=== PATIENT | male | born 1930 | race Caucasian/White ===

== ENCOUNTER 2018-12-13 19:23 | Inpatient (IN) | payer BC ==
[~2018-12-13] VITALS: Ht 167.6 cm; Wt 83.6 kg
[2018-12-13 19:25] VITALS: BP_SYST 120
--- NOTE | 2018-12-13 19:25 | NUR ---
Placed in room 6 . Placed on cardiac technician, blood pressure machine and pulse oximeter. To gown for exam. Side rails up. Report given to Obie ALANIZ.
--- NOTE | 2018-12-13 19:25 | NUR ---
Jose royal in ED - 12/13/18 at 1933 by [email or web address] Placed in room 6 . Placed on cardiac tech, blood pressure machine and pulse oximeter. To gown for exam. Side rails up.
--- NOTE | 2018-12-13 19:48 | NUR ---
Pt BIB ALS from [facility] c/o short of breath. Per blueprint machine operator, pt was found at [facility] with "blue mouth and not verbally responsive." Per daughter, pt is on continuous oxygen at home at 3L/min. Pt ambulates with walker. Daughter states pt has had cough and congestion for the past few weeks and was prescribed a Zpak and antihistamines. Pt is currently on non-rebreather, O2 saturation at 100%. Pt is AAO x 4 but slow to respond. Per daughter, "he's not normally hesitant when he answers." No other injuries/complaints per patient or noted.
--- NOTE | 2018-12-13 20:02 | NUR ---
URI Ladd at bedside examining patient.
[2018-12-13] MEDS ORDERED: FUROSEMIDE 40 MG/4 ML VIAL IVP ONE (20:15)
--- NOTE | 2018-12-13 20:15 | NUR ---
Lab at bedside for blood draw
--- NOTE | 2018-12-13 20:42 | NUR ---
Per Dr. Ladd, hold off on administering lasix due to patient's blood pressure of 108/47. Informed daughter we will be holding off on medication.
--- NOTE | 2018-12-13 20:58 | NUR ---
Daughter refused ativan medication for patient. Per daughter, he is "very sensitive with ativan and depresses his breathing badly." Daughter states he usually "puts his bipap on himself at home." Dr. Ladd made aware.
[2018-12-13] MEDS ORDERED: LORazepam 2 MG/ML VIAL (FOR ER USE) IVP ONE (21:00)
[2018-12-13 21:10] LABS: BASOPHILS % (AUTO) 0.4 % (0.0-2.0); EOSINOPHILS # (AUTO) 0.1 K/uL (0.0-0.4); EOSINOPHILS % (AUTO) 1.3 % (0.0-4.0); HEMATOCRIT 40.1 % (36-54); HEMOGLOBIN 13.1 g/dL (14.0-18.0); LYMPHOCYTES # (AUTO) 0.7 K/uL (1.0-5.5); MEAN CORPUSCULAR HEMOGLOBIN 33 pg (27-31); MEAN CORPUSCULAR HGB CONC 33 % (32-36); MEAN CORPUSCULAR VOLUME 101 fL (79.0-98.0); MONOCYTES # (AUTO) 0.6 K/uL (0.0-1.0); NEUTROPHILS # (AUTO) 7.8 K/uL (1.8-7.7); NEUTROPHILS % (AUTO) 84.3 % (40.0-70.0); PLATELET COUNT (AUTO) 171 K/uL (130-430); RED BLOOD CELL COUNT(AUTO) 3.98 MIL/uL (4.2-6.2); RED CELL DISTRIBUTION WIDTH 15.9 % (9.0-15.0); WHITE BLOOD COUNT (AUTO) 9.2 K/uL (4.8-10.8)
[2018-12-13 21:13] LABS: ANION GAP 4 (5-15); CALCIUM 8.6 mg/dL (8.4-11.0); CHLORIDE 104 mmol/L (98-107); CREATININE 1.31 mg/dL (0.55-1.30); GLUCOSE 135 mg/dL (70-99); POTASSIUM 4.2 mmol/L (3.5-5.1); SODIUM SERUM 144 mmol/L (136-145); UREA NITROGEN, BLOOD 30 mg/dL (8-21)
[2018-12-13 21:18] LABS: ALANINE AMINOTRANSFERASE 9 U/L (12-78); ALBUMIN 3.6 g/dL (3.4-4.8); ASPARTATE AMINOTRANSFERASE 17 U/L (10-37); TOTAL BILIRUBIN 0.5 mg/dL (0.0-1.0)
[2018-12-13] MEDS ORDERED: FURO-150 PO (23:40)
[2018-12-13] MEDS ORDERED: [UNRECOGNIZED DRUG - CODE] PO (23:40)
[2018-12-13] MEDS ORDERED: FLUT1BLS3 INH (23:40)
[2018-12-13] MEDS ORDERED: LATA7.5D OP (23:40)
[2018-12-13] MEDS ORDERED: SIMV10TA6 PO (23:40)
[2018-12-13] MEDS ORDERED: TAMS0.4C96 PO (23:40)
[2018-12-13] MEDS ORDERED: PRAM1TAB5 PO (23:40)
[2018-12-13] MEDS ORDERED: ASPI-1155 PO (23:40)
[2018-12-13] MEDS ORDERED: CARB-61 PO (23:40)
[2018-12-13] MEDS ORDERED: PRIM50TA31 PO (23:40)
--- NOTE | 2018-12-13 23:40 | NUR ---
Medication reconciliation completed with information provided by [facility] Medication Report given from [facility]. Any prior medication reconciliation on file was reviewed and corrected.
--- NOTE | 2018-12-13 23:47 | NUR ---
Per Daughter, Kinjal, at bedside Patient is a Modified Code with Bipap Only. Code Status form placed in Chart.
--- NOTE | 2018-12-13 23:47 | NUR ---
Jose royal in ED - 12/13/18 at 2352 by [email or web address] Per family at bedside. Patient is DNR with comfort measures.
--- NOTE | 2018-12-13 23:48 | NUR ---
Patient will be admitted to care of Dr. Burnett. Admitted to telemetry unit. Will go to room 135. Belongings list completed. Summary report printed. Report will be given at bedside.
--- NOTE | 2018-12-14 00:14 | NUR ---
ADMISSION: The patient, CAMILLE FRANK, 88 y/o, M admitted by MANFRED WOODY MD, with the diagnosis of acute CHF , TO ROOM 120 B ,FAMILY AT BEDSIDE .
--- NOTE | 2018-12-14 00:29 | NUR ---
Transfer to 120B via ACLS protocol. Licensed nurse present. IV present no signs or symptoms of infiltration.
[2018-12-14 00:30] VITALS: BP_SYST 131
--- NOTE | 2018-12-14 00:30 | NUR ---
OPENING NOTE RECEIVED ENDORSEMENT REPORT FROM ADMISSION NURSE VIKTOR AT BEDSIDE. PT IS AOX2. NO SOB NOTED. NO DISTRESS NOTED. CHEST RISE EVEN AND UNLABORED. NO S/S OF PAIN NOTED. PT DENIES PAIN AT THIS TIME. IV CLEAN, DRY, PATENT AND INTACT. PT TOLERATING NC AT 2L WELL. ORIENTED PT TO HOSPITAL ROOM AND HOW TO USE ROOM PHONE AND CALL LIGHT TO CALL FOR ASSISTANCE. PT VERBALIZED UNDERSTANDING. SEIZURE PRECAUTIONS IN PLACE. SAFETY MEASURES IN PLACE. CALL LIGHT/ROOM PHONE WITHIN REACH, BED ALARM ON, BED WHEELS LOCKED, BED IN LOWEST POSITION, BED WHEELS LOCKED, SIDE RAILS UP X2, BEDSIDE TABLE WITHIN REACH. NO OTHER NEEDS AT THIS TIME. WILL CONTINUE TO MONITOR PT AND CONTINUE PT'S POC.
[2018-12-14 00:31] VITALS: BP_SYST 131
--- NOTE | 2018-12-14 01:00 | NUR ---
RN ROUNDS PT RESTING IN BED. DTR'S AT BEDSIDE. NO SOB NOTED. NO DISTRESS NOTED. CHEST RISE EVEN AND UNLABORED. NO S/S OF PAIN NOTED. PT DENIES PAIN AT THIS TIME. VITAL SIGNS WNL. NO OTHER NEEDS AT THIS TIME. SEIZURE PRECAUTIONS IN PLACE. SAFETY MEASURES IN PLACE. WILL CONTINUE TO MONITOR PT AND CONTINUE PT'S POC.
[2018-12-14] MEDS ORDERED: FLUT16SP16 NS (01:02)
[2018-12-14] MEDS ORDERED: PRAM1TAB4 PO (01:05)
--- NOTE | 2018-12-14 01:08 | NUR ---
MED REC: DAUGHTER CHARLES AT BEDSIDE , SHE REQUESTED TO CHECK THE MED REC , CHECKED MED REC ALONG WITH DAUGHTER AND MADE CORRECTION PER DAUGHTER STATED .
--- NOTE | 2018-12-14 01:19 | NUR ---
PAGED I PAGED DR. LOAIZA @ [phone] I SPOKE WITH AYO PECK
--- NOTE | 2018-12-14 01:48 | NUR ---
PAGED I PAGED DR. LOAIZA I SPOKE WITH ESVIN THIS IS MY SECOND CALL
--- NOTE | 2018-12-14 01:52 | NUR ---
DR. LOAIZA RETURNED CALL
--- NOTE | 2018-12-14 02:10 | NUR ---
RN ROUNDS PT RESTING IN BED. NO SOB NOTED. NO DISTRESS NOTED. CHEST RISE EVEN AND UNLABORED. NO S/S OF PAIN NOTED. PT DENIES PAIN AT THIS TIME. NO NEEDS AT THIS TIME. SAFETY MEASURES IN PLACE. WILL CONTINUE TO MONITOR PT AND CONTINUE PT'S POC.
[2018-12-14 02:30] VITALS: BP_SYST 131
--- NOTE | 2018-12-14 04:35 | NUR ---
RN ROUNDS PT RESTING IN BED WITH EYES CLOSED. NO SOB NOTED. NO DISTRESS NOTED. CHEST RISE EVEN AND UNLABORED. NO NEEDS AT THIS TIME. SAFETY MEASURES IN PLACE. WILL CONTINUE TO MONITOR PT AND CONTINUE PT'S POC.
--- NOTE | 2018-12-14 06:30 | NUR ---
CLOSING NOTE PT RESTING IN BED. NO SOB NOTED. NO DISTRESS NOTED. CHEST RISE EVEN AND UNLABORED. NO S/S OF PAIN NOTED. PT DENIED PAIN THROUGHOUT SHIFT. ALL NEEDS MET THROUGHOUT SHIFT. ALL SCHEDULED MEDICATIONS ADMINISTERED ORDERED. SAFETY MEASURES IN PLACE THROUGHOUT SHIFT. CALL LIGHT/ROOM PHONE WITHIN REACH, BED ALARM ON, BED WHEELS LOCKED, BED IN LOWEST POSITION, BED WHEELS LOCKED, SIDE RAILS UP X2, BEDSIDE TABLE WITHIN REACH. NO NEEDS AT THIS TIME. WILL ENDORSE PT CARE TO DAY NURSE.
[2018-12-14] MEDS: ALBUTEROL SULFATE 0.083% 2.5 MG/3 ML VIAL.NEB INH SCH ×3 (07:05→20:19)
[2018-12-14] MEDS: IPRATROPIUM BROM 0.5 MG/2.5 ML VIAL.NEB (ATROVENT) INH SCH ×3 (07:05→20:19)
--- NOTE | 2018-12-14 07:30 | NUR ---
OPENING NOTE Patient resting in the bed. No acute distress. On O2 6L/min via simple mask. Skin warm and dry to touch. SL intact to right hand, no redness, no swelling, patent. Safety measure maintained. Call light within reached. Bed locked in low position, padded side rails up, bed alarm on. Will continue to monitor.
[2018-12-14 07:55] VITALS: BP_SYST 121
--- NOTE | 2018-12-14 08:05 | NUR ---
RT NOTES Pt. continue to tolerate 2L NC, 92% saturation
--- NOTE | 2018-12-14 08:40 | NUR ---
PATIENT DESATURATING Patient O2 sat=86% with O2 2L/min via NC. Slight SOB noted. Put back patient to O2 6L/min via simple mask. Safety measure maintained. Call light within reached. Bed locked in low position, padded side rails up, bed alarm on. Continue to monitor.
[2018-12-14] MEDS: CARBIDOPA/LEVODOPA CR 50/200 MG TAB PO SCH ×4 (09:31→22:50)
[2018-12-14] MEDS: CARBIDOPA/LEVODOPA 25/100 MG TABLET PO SCH ×5 (09:31→22:50)
[2018-12-14] MEDS: FUROSEMIDE 40 MG/4 ML VIAL IVP SCH ×2 (09:32→22:53)
--- NOTE | 2018-12-14 09:35 | NUR ---
SCHEDULE MED GIVEN Patient resting in the bed. No acute distress. Continue on O2 6L/min via simple mask. O2 sat=97% at this time. Safety measure maintained. Call light within reached. Bed locked in low position, padded side rails up, bed alarm on. Continue to monitor.
--- NOTE | 2018-12-14 10:30 | NUR ---
Nutrition Update Elijah Scale 13 noted. Pt admitted for acute CHF. Diet: mechanical soft, cardiac BMI: 30.7 kg/m2 RD to follow per nutrition care standards.
[2018-12-14] MEDS ORDERED: methylPREDNISolone SOD SUCC/PF 62.5 MG/ML VIAL IVP ONE (11:15)
--- NOTE | 2018-12-14 11:25 | NUR ---
ROUND Patient resting in the bed. No acute distress. Continue on O2 6L/min via simple mask. O2 sat=96%. Safety measure maintained. Bed locked in low position, padded side rails up, bed alarm on. Call light within reached. Continue to monitor.
--- NOTE | 2018-12-14 11:32 | NUR ---
CONSULTATION PAGED/CALLED Reason for Consultation: [] COPD Person Who was Notified: [] ALLYSSA Consulting Physician: [] DR TORRES Log Cut Off Sawyer Specialty: [] PULMO Ordering Physician: [] DR WOODY
[2018-12-14 11:34] VITALS: BP_SYST 118
--- NOTE | 2018-12-14 12:08 | NUR ---
SEEN AND EXAMINED BY MANFRED NIEVES WITH ORDER OF HOSPICE EVAL.
--- NOTE | 2018-12-14 12:15 | NUR ---
SEEN AND EXAMINED BY ARIANA JENNINGS WITH ORDER.
--- NOTE | 2018-12-14 13:10 | NUR ---
ROUND Patient resting in the bed. No acute distress. Continue on O2 6L/min via simple mask. O2 sat=96%. Family at bedside. Safety measure maintained. Bed locked in low position, padded side rails up, bed alarm on. Call light within reached. Continue to monitor.
[2018-12-14] MEDS: cefTRIAXone 1 GM in D5W 50 ML IV SCH (13:12)
[2018-12-14] MEDS: AZITHROMYCIN 500 MG in NS 250 ML IV SCH (13:52)
--- NOTE | 2018-12-14 15:00 | NUR ---
ROUND Patient resting in the bed comfortable. No acute distress. Continue on O2 6L/min via simple mask. O2 sat=97%. Safety measure maintained. Call light within reached. Bed locked in low position, padded side rails up, bed alarm on. Continue to monitor.
[2018-12-14] MEDS: DOCUSATE SODIUM 100 MG CAPSULE PO SCH ×3 (15:34→22:50)
[2018-12-14 15:47] VITALS: BP_SYST 114
--- NOTE | 2018-12-14 17:00 | NUR ---
WATCHING TV Patient resting in the bed and watching TV. No acute distress. Continue on O2 6L/min via simple mask. O2 sat=97%. Safety measure maintained. Bed locked in low position, padded side rails up, bed alarm on. Call light within reached. Continue to monitor.
--- NOTE | 2018-12-14 18:55 | NUR ---
CLOSING NOTE Patient resting in the bed. No acute distress. On O2 6L/min via simple mask. Skin warm and dry to touch. SL intact to right hand, no redness, no swelling, patent. No seizure activity noted during shift. All needs met and attended. Safety measure maintained. Call light within reached. Bed locked in low position, padded side rails up, bed alarm on. Will endorse to night nurse.
--- NOTE | 2018-12-14 19:41 | NUR ---
OPENING NOTES Pt and endorsement received from day shift nurse. Pt is awake, alert, oriented and lying in bed. Pt on saline lock on right hand G22. Pt on O2 inhalation at 6L/min via simple mask. No complains of pain or discomfort at this time. No signs of acute distress or SOB noted. Encouraged to use call light when needed. Safety precautions in place with 3 side rails up, wheels locked, bed alarm on and in lowest position. Call light with pt. Will continue to monitor.
[2018-12-14] MEDS: methylPREDNISolone SOD SUCC/PF 62.5 MG/ML VIAL IVP SCH (21:31)
--- NOTE | 2018-12-14 21:31 | NUR ---
MED PASS Pt refused to take BP, pt became agitated and removed BP cuff. Pt stated "Back off" and trying to hold my hand tight. Will try to give oral meds later when pt has calmed down.
--- NOTE | 2018-12-14 22:55 | NUR ---
ROUNDS Pt's daughter Kinjal came and convinced his dad to take his medication. All oral meds and IV given and pt tolerated well. Pt was not restless or agitated at this time and was cooperative. No complains of pain and no signs of acute distress or SOB noted. Bipap placed back on pt. Safety precautions in place and call light with pt. Will continue to monitor.
[2018-12-15 00:29] VITALS: BP_SYST 118
--- NOTE | 2018-12-15 01:17 | NUR ---
ROUNDS Pt is resting in bed with both eyes closed, with visible chest rise and fall with unlabored breathing noted. Pt on Bipap. No complains of pain and no signs of acute distress noted. Safety precautions in place and call light with pt. Will continue to monitor.
[2018-12-15] MEDS: IPRATROPIUM BROM 0.5 MG/2.5 ML VIAL.NEB (ATROVENT) INH SCH ×4 (01:26→19:00)
[2018-12-15] MEDS: ALBUTEROL SULFATE 0.083% 2.5 MG/3 ML VIAL.NEB INH SCH ×4 (01:27→18:00)
--- NOTE | 2018-12-15 03:32 | NUR ---
ROUNDS Pt is resting in bed with both eyes closed, with visible chest rise and fall with unlabored breathing noted. No signs of acute distress noted. Pt on Bipap. No needs at this time. Safety precautions in place and call light with pt. Will continue to monitor.
[2018-12-15] MEDS: methylPREDNISolone SOD SUCC/PF 62.5 MG/ML VIAL IVP SCH ×3 (05:38→21:51)
[2018-12-15 05:49] LABS: BASOPHILS % (AUTO) 0.3 % (0.0-2.0); EOSINOPHILS % (AUTO) 0.3 % (0.0-4.0); HEMATOCRIT 41.7 % (36-54); HEMOGLOBIN 13.4 g/dL (14.0-18.0); LYMPHOCYTES # (AUTO) 0.3 K/uL (1.0-5.5); LYMPHOCYTES % (AUTO) 3.6 % (20.5-51.5); MEAN CORPUSCULAR HEMOGLOBIN 33 pg (27-31); MEAN CORPUSCULAR HGB CONC 32 % (32-36); MEAN CORPUSCULAR VOLUME 102 fL (79.0-98.0); MONOCYTES # (AUTO) 0.1 K/uL (0.0-1.0); MONOCYTES % (AUTO) 1.1 % (1.7-9.3); NEUTROPHILS # (AUTO) 8.1 K/uL (1.8-7.7); NEUTROPHILS % (AUTO) 94.7 % (40.0-70.0); PLATELET COUNT (AUTO) 149 K/uL (130-430); RED CELL DISTRIBUTION WIDTH 15.8 % (9.0-15.0); WHITE BLOOD COUNT (AUTO) 8.5 K/uL (4.8-10.8)
[2018-12-15 05:57] LABS: ALANINE AMINOTRANSFERASE 10 U/L (12-78); ALBUMIN 3.3 g/dL (3.4-4.8); ASPARTATE AMINOTRANSFERASE 13 U/L (10-37); CALCIUM 8.7 mg/dL (8.4-11.0); CHLORIDE 101 mmol/L (98-107); CREATININE 1.06 mg/dL (0.55-1.30); GLUCOSE 137 mg/dL (70-99); TOTAL BILIRUBIN 0.5 mg/dL (0.0-1.0); UREA NITROGEN, BLOOD 30 mg/dL (8-21)
[2018-12-15 06:11] LABS: ANION GAP 0 (5-15); POTASSIUM 4.9 mmol/L (3.5-5.1); SODIUM SERUM 141 mmol/L (136-145)
--- NOTE | 2018-12-15 06:24 | NUR ---
CLOSING NOTES Pt is resting in bed with both eyes closed, with visible chest rise and fall with unlabored breathing noted. Pt now on O2 inhalation at 6L/min via simple mask. No complains of pain or discomfort at this time. No signs of acute distress or SOB noted. All needs attended throughout the shift. Safety precautions maintained with 3 side rails up, wheels locked, bed alarm on and in lowest position. Call light with pt. Will endorse to day shift nurse.
[2018-12-15 08:00] VITALS: BP_SYST 128
--- NOTE | 2018-12-15 08:00 | NUR ---
Patient is A/Ox4, on simple mask 7L, satting in the low 90s%. IV on the right hand, #22, SL. Uses urinal. SR on monitor. Call light in place, bed locked at the lowest position, bed alarm will continue to monitor.
[2018-12-15] MEDS: CARBIDOPA/LEVODOPA 25/100 MG TABLET PO SCH ×4 (08:14→20:35)
[2018-12-15] MEDS: CARBIDOPA/LEVODOPA CR 50/200 MG TAB PO SCH ×3 (08:14→20:35)
[2018-12-15] MEDS: DOCUSATE SODIUM 100 MG CAPSULE PO SCH ×3 (08:15→20:34)
[2018-12-15] MEDS: FUROSEMIDE 40 MG/4 ML VIAL IVP SCH ×2 (08:15→20:39)
--- NOTE | 2018-12-15 10:00 | NUR ---
PINKY CESAR, DISCUSSED POC WITH PATIENT.
--- NOTE | 2018-12-15 10:52 | NUR ---
[facility]: [facility] Nurse Tamara will meet with family today at 2:00pm. Franny Barron, HCP Resin Filterer [phone]
--- NOTE | 2018-12-15 11:55 | NUR ---
Director Of Scout Work/Hospice ASBESTOS CLOTH INSPECTOR noted the referral to hospice. Phoned Franny PARIKH with HCP, . She requested info faxed to [facility]. ASBESTOS CLOTH INSPECTOR met with patient at bedside. Patient is personally known to ASBESTOS CLOTH INSPECTOR. Patient did not think he was ready for hospice but was willing to speak with them. Notified Franny PARIKH who stated [facility] had been called and have an appointment to come at 2. Patient's daughters were in the room later and ASBESTOS CLOTH INSPECTOR spoke with them. Discussed hospice. They are unsure if hospice is what they want right now but are also willing to meet with [facility]. Will remain available.
[2018-12-15] MEDS: cefTRIAXone 1 GM in D5W 50 ML IV SCH (11:59)
[2018-12-15 12:00] VITALS: BP_SYST 107
[2018-12-15] MEDS: AZITHROMYCIN 500 MG in NS 250 ML IV SCH (12:00)
--- NOTE | 2018-12-15 14:00 | NUR ---
DR. WOODY IS CALLED REGARDING ORDERS.
--- NOTE | 2018-12-15 15:52 | NUR ---
[facility]: Per [facility], consents signed with family. Nurse Silvia coming at 4pm to complete admission to [facility]. [facility] requesting discharage order in place [facility]. Patient is returning to [facility]. Message left to Dr. Burnett regarding family signing consents and that [facility] is requesting for discharge order be put in place [facility]. [facility] ambulance on will call. [facility] made aware of transportation arrangements. Franny Barron, BRITANY Aviation Survival Technician [phone]
[2018-12-15 16:46] VITALS: BP_SYST 110
--- NOTE | 2018-12-15 17:20 | NUR ---
Dr. Burnett called in and gave discharge orders.
--- NOTE | 2018-12-15 17:24 | NUR ---
Family disagrees with Dr. Burnett's discharge order. Dr. Burnett is notified.
--- NOTE | 2018-12-15 17:35 | NUR ---
Dr. Burnett calls back and cancels the discharge order.
[2018-12-15 19:15] VITALS: BP_SYST 141
--- NOTE | 2018-12-15 19:15 | NUR ---
OPENING NOTE RECEIVED ENDORSEMENT REPORT FROM DAY NURSE MACKAY AT BEDSIDE. PT IS AOX3. NO SOB NOTED. NO DISTRESS NOTED. CHEST RISE EVEN AND UNLABORED. NO S/S OF PAIN NOTED. FAMILY AT BEDSIDE. PT DENIES PAIN AT THIS TIME. IV CLEAN, DRY, PATENT AND INTACT. PT TOLERATING OXYMIZER AT 4L WELL. ORIENTED PT TO HOSPITAL ROOM AND HOW TO USE ROOM PHONE AND CALL LIGHT TO CALL FOR ASSISTANCE. PT VERBALIZED UNDERSTANDING. SEIZURE PRECAUTIONS IN PLACE. SAFETY MEASURES IN PLACE. CALL LIGHT/ROOM PHONE WITHIN REACH, BED ALARM ON, BED WHEELS LOCKED, BED IN LOWEST POSITION, BED WHEELS LOCKED, SIDE RAILS UP X2, BEDSIDE TABLE WITHIN REACH. NO OTHER NEEDS AT THIS TIME. WILL CONTINUE TO MONITOR PT AND CONTINUE PT'S POC.
--- NOTE | 2018-12-15 19:39 | NUR ---
paged paged for Dr Danni Saravia, dialed . s/w Karla.
--- NOTE | 2018-12-15 19:45 | NUR ---
DR. ROGERS RETURNED CALL NEW ORDERS TO CONTINUE HOME MEDS FLUTICASONE (FLONASE) AND BREO ELLIPTA
[2018-12-15] MEDS ORDERED: FLUTICASONE/VILANTEROL 1 EACH BLST.W.DEV INH SCH (20:00)
[2018-12-15] MEDS: HEPARIN SODIUM,PORCINE 5000 UNITS/ML VIAL SUBCUT SCH (20:37)
[2018-12-15] MEDS: PRAMIPEXOLE DI-HCL 1 MG TABLET PO SCH (20:39)
[2018-12-15] MEDS: FLUTICASONE PROPIONATE 50 mCg/SPRAY 16 GM NS SCH (21:00)
[2018-12-15] MEDS ORDERED: BUDESONIDE 0.5 MG/2 ML AMPUL.NEB INH SCH (21:30)
--- NOTE | 2018-12-15 21:49 | NUR ---
RN ROUNDS PT RESTING IN BED. DTR'S AT BEDSIDE. NO SOB NOTED. NO DISTRESS NOTED. CHEST RISE EVEN AND UNLABORED. NO S/S OF PAIN NOTED. PT DENIES PAIN AT THIS TIME. VITAL SIGNS WNL. SCHEDULED MEDICATION ADMINISTERED ORDERED. PT TOLERATED WELL. PT REFUSED SOLUMEDROL. IVF INFUSING WELL. NO OTHER NEEDS AT THIS TIME. SEIZURE PRECAUTIONS IN PLACE. SAFETY MEASURES IN PLACE. WILL CONTINUE TO MONITOR PT AND CONTINUE PT'S POC.
[2018-12-16 00:43] VITALS: BP_SYST 107
[2018-12-16] MEDS: ALBUTEROL SULFATE 0.083% 2.5 MG/3 ML VIAL.NEB INH SCH ×4 (02:01→19:25)
[2018-12-16] MEDS: IPRATROPIUM BROM 0.5 MG/2.5 ML VIAL.NEB (ATROVENT) INH SCH ×4 (02:02→19:26)
[2018-12-16] MEDS: methylPREDNISolone SOD SUCC/PF 62.5 MG/ML VIAL IVP SCH (05:40)
[2018-12-16 06:43] LABS: ANION GAP -2 (5-15); CALCIUM 8.7 mg/dL (8.4-11.0); CHLORIDE 102 mmol/L (98-107); GLUCOSE 94 mg/dL (70-99); POTASSIUM 3.6 mmol/L (3.5-5.1); SODIUM SERUM 142 mmol/L (136-145); UREA NITROGEN, BLOOD 31 mg/dL (8-21)
--- NOTE | 2018-12-16 06:46 | NUR ---
CRITICAL LAB SPOKE WITH KENDAL FROM LAB CO2 42
[2018-12-16] MEDS: BUDESONIDE 0.5 MG/2 ML AMPUL.NEB INH SCH ×2 (07:00→19:00)
--- NOTE | 2018-12-16 07:23 | NUR ---
SHANEKA TORRES WAS CALLED RE: CRITICAL CO2 LEVEL. SPOKE TO SHANNA.
--- NOTE | 2018-12-16 07:30 | NUR ---
OPENING NOTE: RECEIVED REPORT FROM NIGHT NURSE. PATIENT IS RESTING COMFORTABLY IN BED. NO S/S OF DISTRESS OR SOB. PATIENT IS AWAKE AND ALERT. PATIENT ON 4 L OXYMIZER. VITAL SIGNS UPDATED IN FLOW SHEET. IV IS PATENT AND SALINE LOCKED. CALL LIGHT IN REACH, BED IN LOWEST POSITION, AND WILL CONTINUE TO MONITOR.
[2018-12-16 08:08] VITALS: BP_SYST 143
[2018-12-16] MEDS: CARBIDOPA/LEVODOPA CR 50/200 MG TAB PO SCH ×3 (08:57→22:13)
[2018-12-16] MEDS: CARBIDOPA/LEVODOPA 25/100 MG TABLET PO SCH ×4 (08:58→22:13)
[2018-12-16] MEDS: FLUTICASONE PROPIONATE 50 mCg/SPRAY 16 GM NS SCH ×2 (08:58→22:13)
[2018-12-16] MEDS: FUROSEMIDE 40 MG/4 ML VIAL IVP SCH ×2 (08:59→21:00)
[2018-12-16] MEDS: DOCUSATE SODIUM 100 MG CAPSULE PO SCH ×3 (08:59→22:12)
[2018-12-16] MEDS: HEPARIN SODIUM,PORCINE 5000 UNITS/ML VIAL SUBCUT SCH ×2 (09:00→22:16)
[2018-12-16] MEDS: PRAMIPEXOLE DI-HCL 1 MG TABLET PO SCH ×4 (10:47→22:13)
--- NOTE | 2018-12-16 11:07 | NUR ---
TRIED ON WORKING ON THE ORDER TRANSFER TO SNF BY DR ROGERS, ATTENDING MD ATTENDANT COIN OPERATED LAUNDRY. FAXED F/S, HP, ORDER AND MED LIST TO HCP AFTER HOURS. SPOKE TO DUTCH. AWAITING FOR THEIR REPLY.
[2018-12-16] MEDS ORDERED: ZITHROMAX PO (11:16)
[2018-12-16] MEDS ORDERED: MEDROL DOSE PACK PO (11:17)
[2018-12-16] MEDS ORDERED: ALBMDI INH (11:18)
[2018-12-16] MEDS ORDERED: BUDE6HFA INH (11:18)
[2018-12-16] MEDS: cefTRIAXone 1 GM in D5W 50 ML IV SCH (11:49)
[2018-12-16 12:00] VITALS: BP_SYST 130
--- NOTE | 2018-12-16 12:00 | NUR ---
RN ROUNDS PATIENT IS RESTING COMFORTABLY IN BED. NO S/S OF DISTRESS OR SOB. VISITORS AT BEDSIDE. DISCHARGE ORDER IS IN. WAITING FOR BED AND PLACEMENT AT [facility]. NO NEEDS AT THIS TIME. CALL LIGHT IN REACH, BED IN LOWEST POSITION, AND WILL CONTINUE TO MONITOR.
[2018-12-16] MEDS: AZITHROMYCIN 500 MG in NS 250 ML IV SCH (12:46)
[2018-12-16] MEDS ORDERED: AZITHROMYCIN 500 MG in D5W 250 ML IV SCH (13:01)
--- NOTE | 2018-12-16 17:02 | NUR ---
HCP AFTER HOURS GAVE TWO SNF PLACES IN [facility], [facility] AND [facility]. INFORMED RN, HOA WHO SAID WILL CALL THE DAUGTHER. CM OF HCP WILL STILL LOOK FOR OTHER SNF LIKE [facility] AND [facility]. [facility] THE DAUGHTER'S PREFERENCE HAD NO AVAILABLE BED. SPOKE TO DUTCH
[2018-12-16 17:03] VITALS: BP_SYST 125
--- NOTE | 2018-12-16 17:39 | NUR ---
CALLED HCP AFTER HOURS FOR A F/U STATUS FOR SNF PLACEMENT. MELISSA[facility]S PREFERENCE IS [facility]. AWAITING FOR A BED. SPOKE TO MARCO ANTONIO
--- NOTE | 2018-12-16 18:31 | NUR ---
CLOSING NOTE: PATIENT IS RESTING COMFORTABLY IN BED. NO S/S OF DISTRESS OR SOB. PATIENT ON 4 L OXYMIZER. DISCHARGE PENDING SNF PLACEMENT. IV IS PATENT AND SALINE LOCKED. DAUGHTER AT BEDSIDE. ALL NEEDS MET DURING SHIFT. CALL LIGHT IN REACH, BED IN LOWEST POSITION, AND WILL GIVE REPORT TO NIGHT NURSE.
--- NOTE | 2018-12-16 19:43 | NUR ---
OPENING NOTE Received patient awake, AOx3, resting in bed and talking with daughter - visiting at bedside. He is in no distress. Nonlabored breathing on oxymizer 4L. IV is SL to RFA. Dinner tray is at bedside and he ate 95% of his meal, he reports good appetite. Side rails up 3x, bed is locked in lowest position, bed alarm on, and instructed on use of call light. Updated board.
--- NOTE | 2018-12-16 19:52 | NUR ---
HCP case-mannevaeher Incoming call from Sandhya caser shoe parts at [facility]. She said she did not hear from [place], and possible has a location in [facility]. I let her know family finds [place] far and declined previous SNF which was located in [place]. She said they will have to decline again.
[2018-12-16 20:00] VITALS: BP_SYST 129
[2018-12-16] MEDS: PREDNISONE 20 MG TABLET PO SCH (21:00)
--- NOTE | 2018-12-16 22:13 | NUR ---
Medications Due medications given. Patient and his two daughters educated on meds and verbalized understanding. The Patient refused the lasix IV dose, stating that he doesn't want it at night. I explained indication and he said not at night and further explained that last night he was voiding and didn't rest. Presently he does not have leg swelling and I did not administer as patient refused.
--- NOTE | 2018-12-16 22:15 | NUR ---
Refused Prednisone tablet Daughters present during medication administration and they informed me that the patient will not take Prednisone. They said the patient has had this medication in the past and it makes him aggressive.
--- NOTE | 2018-12-16 22:52 | NUR ---
HCP - casey saw operator Incoming call from Sandhya manager lab. [facility] The placement at [place] is still pending and will follow-up in am. The daughters are visiting and I updated them on this information.
--- NOTE | 2018-12-17 00:09 | NUR ---
NOTES Patient out of bed for use of commode; only voided. He removed leads. New leads and oxygen sensor attached/connected. Back in bed and bed alarm on, call light w/in reach. He asked to be connected to Bipap and will call RT.
[2018-12-17] MEDS: ALBUTEROL SULFATE 0.083% 2.5 MG/3 ML VIAL.NEB INH SCH ×4 (00:15→19:40)
[2018-12-17] MEDS: IPRATROPIUM BROM 0.5 MG/2.5 ML VIAL.NEB (ATROVENT) INH SCH ×4 (00:15→19:40)
--- NOTE | 2018-12-17 00:44 | NUR ---
BIPAP Patient is connected to BIPAP and is resting w/eyes closed. No sign of distress noted, call light w/in reach.
[2018-12-17 01:20] VITALS: BP_SYST 119
--- NOTE | 2018-12-17 01:20 | NUR ---
Patient agitated Patient is awake, removed BIPAP and leads and is confuse. I reoriented patient to surroundings and he firmly insisted that he wanted to get out. I connected the leads and connected the patient to the oxymizer. He insisted on getting out and I called for help. The nurse resident programs assistant came and we were not able to keep him in bed and he stood up.
--- NOTE | 2018-12-17 01:30 | NUR ---
PAGED: PAGED PERFORMANCE INSTRUCTOR PHYSICIAN DR. ROGERS SPOKE WITH DAVID
--- NOTE | 2018-12-17 01:32 | NUR ---
S/W daughter Kinjal Called and spoke w/daughter Kinjal and updated her on her father's agitated state. She said he has episodes such as these when he is hospitalized. She said that at [facility] he will place and remove self from BIPAP, but is not confused or agitated. I let her know that I'm aware there is a note indicating not to use sedating medication and we don't have any medication to calm him down and if I page the doctor he will order medication. She said it is ok to page and give him medication to calm him one time.
--- NOTE | 2018-12-17 01:45 | NUR ---
Agitated Patient was agitated, confused and non-cooperative. It took three staff members to assist the patient to a wheelchair; the safety belt was fastened and he was connected to the portable oxygen tank at 4L / oxymizer. He was taken out to the hallway to keep him calm. He still insisted on going out and voiced that he was being kidnapped. has been paged.
--- NOTE | 2018-12-17 02:23 | NUR ---
PAGED x2 SECOND PAGE SENT OUT TO THE LEATHER SORTER PHYSICIAN DR. ROGERS, SPOKE WITH DAVID
--- NOTE | 2018-12-17 02:29 | NUR ---
Trini RODRIGUEZ Pageira Saravia, , s/w Carol
--- NOTE | 2018-12-17 02:35 | NUR ---
Dr. Saravia Spoke with Dr. Saravia and updated on patient's agitated/confused stated. He provided a one time order of Ativan and it was read-back and entered in [facility].
[2018-12-17] MEDS ORDERED: LORazepam 2 MG/ML VIAL IVP SCH (03:00)
--- NOTE | 2018-12-17 03:15 | NUR ---
Ativan Patient was given ativan as ordered. He was sitting on chair and still refused to go to bed insisting he wanted to get out. Immediately after administered dose, was wheeled to bedside and l let him know this is his bed. He was skeptical and said it was for someone else. We encouraged him to go to bed and rest and he was agreeable. Security and nurse reference assistant, Q helped the patient stand up and transfer to bed safely. Presently he is resting in bed, calm and eyes open and close. Will monitor.
--- NOTE | 2018-12-17 04:08 | NUR ---
Sleeping Patient is resting in bed, presently sleeping. Symmetrical rise and fall of chest noted. Non-labored breathing on oxymizer and sinus rhythm (HR 64) on monitor. Safety precautions maintained. Will monitor.
--- NOTE | 2018-12-17 06:51 | NUR ---
CLOSING NOTE Patient was repositioned to left for comfort. No sign of distress noted. Non-labored breathing on 2L oxymizer with saturation of 96%. IV SL to right hand. Safety precautions in place and call light w/in reach. Needs met throughout shift, will endorse to oncoming nurse.
[2018-12-17] MEDS: BUDESONIDE 0.5 MG/2 ML AMPUL.NEB INH SCH ×2 (07:00→19:00)
[2018-12-17 07:03] LABS: BASOPHILS # (AUTO) 0.1 K/uL (0.0-0.2); BASOPHILS % (AUTO) 0.7 % (0.0-2.0); EOSINOPHILS # (AUTO) 0.1 K/uL (0.0-0.4); EOSINOPHILS % (AUTO) 1.7 % (0.0-4.0); HEMATOCRIT 41.5 % (36-54); HEMOGLOBIN 13.7 g/dL (14.0-18.0); LYMPHOCYTES # (AUTO) 0.9 K/uL (1.0-5.5); LYMPHOCYTES % (AUTO) 13.2 % (20.5-51.5); MEAN CORPUSCULAR HEMOGLOBIN 33 pg (27-31); MEAN CORPUSCULAR HGB CONC 33 % (32-36); MEAN CORPUSCULAR VOLUME 100 fL (79.0-98.0); MONOCYTES # (AUTO) 0.6 K/uL (0.0-1.0); NEUTROPHILS # (AUTO) 5.4 K/uL (1.8-7.7); NEUTROPHILS % (AUTO) 76.4 % (40.0-70.0); PLATELET COUNT (AUTO) 165 K/uL (130-430); RED BLOOD CELL COUNT(AUTO) 4.15 MIL/uL (4.2-6.2); RED CELL DISTRIBUTION WIDTH 15.4 % (9.0-15.0); WHITE BLOOD COUNT (AUTO) 7.1 K/uL (4.8-10.8)
--- NOTE | 2018-12-17 07:17 | NUR ---
Patient is sleeping, arousable, on O2 2l oximizer, satting in the mid 90s%. IV on the right hand, #22, SL. Uses urinal. SR on monitor. Call light in place, bed locked at the lowest position, bed alarm will continue to monitor.
[2018-12-17 07:24] LABS: ALANINE AMINOTRANSFERASE 8 U/L (12-78); ALBUMIN 3.3 g/dL (3.4-4.8); ANION GAP -2 (5-15); ASPARTATE AMINOTRANSFERASE 17 U/L (10-37); CHLORIDE 103 mmol/L (98-107); CREATININE 0.99 mg/dL (0.55-1.30); GLUCOSE 85 mg/dL (70-99); POTASSIUM 3.7 mmol/L (3.5-5.1); SODIUM SERUM 142 mmol/L (136-145); TOTAL BILIRUBIN 0.7 mg/dL (0.0-1.0); UREA NITROGEN, BLOOD 33 mg/dL (8-21)
[2018-12-17] MEDS: PRAMIPEXOLE DI-HCL 1 MG TABLET PO SCH ×4 (08:22→21:06)
[2018-12-17] MEDS: CARBIDOPA/LEVODOPA 25/100 MG TABLET PO SCH ×4 (08:22→21:05)
[2018-12-17] MEDS: FUROSEMIDE 40 MG/4 ML VIAL IVP SCH (08:22)
[2018-12-17] MEDS: CARBIDOPA/LEVODOPA CR 50/200 MG TAB PO SCH ×3 (08:22→21:05)
[2018-12-17] MEDS: FLUTICASONE PROPIONATE 50 mCg/SPRAY 16 GM NS SCH ×2 (08:23→21:04)
[2018-12-17] MEDS: HEPARIN SODIUM,PORCINE 5000 UNITS/ML VIAL SUBCUT SCH ×2 (08:25→21:13)
[2018-12-17] MEDS: DOCUSATE SODIUM 100 MG CAPSULE PO SCH ×3 (08:43→21:05)
[2018-12-17] MEDS: PREDNISONE 20 MG TABLET PO SCH ×2 (08:43→21:05)
--- NOTE | 2018-12-17 08:57 | NUR ---
PATIENT IS CONFUSED, ATTEMPTS TO GET OUT OF BED; HE IS REORIENTED TO THE ENVIRONMENT, AND HE IS PUT BACK IN BED FOR SAFETY.
[2018-12-17 09:43] VITALS: BP_SYST 120
[2018-12-17 10:02] VITALS: BP_SYST 120
[2018-12-17] MEDS: cefTRIAXone 1 GM in D5W 50 ML IV SCH (10:48)
--- NOTE | 2018-12-17 11:20 | NUR ---
Planning: Spoke with Sera at [facility] about transfer. Phone number [phone]. Charge nurse Velma and daughter of patient also spoke on phone to Sera about transfer.
[2018-12-17] MEDS: AZITHROMYCIN 500 MG in D5W 250 ML IV SCH (11:54)
[2018-12-17] MEDS ORDERED: guaiFENesin ER 600 MG TAB PO ONE (12:30)
[2018-12-17 12:35] VITALS: BP_SYST 100
--- NOTE | 2018-12-17 13:48 | NUR ---
Patient is placed on BIPAP. Will monitor for respiratory status
--- NOTE | 2018-12-17 15:04 | NUR ---
DC Planning: spoke with Sera at [facility], [facility]. Bed available in [place] but family did not want per CM.
--- NOTE | 2018-12-17 15:10 | NUR ---
PATIENT IS ASSESSED BY PT. ABLE TO STAND WITH MODERATE ASSISTANCE, AND ABLE TO WALK ABOUT 12 STEPS.
[2018-12-17 16:11] VITALS: BP_SYST 118
--- NOTE | 2018-12-17 18:12 | NUR ---
PATIENT FINISHES DINNER WITHOUT DISTRESS.
[2018-12-17 20:00] VITALS: BP_SYST 128
--- NOTE | 2018-12-17 20:00 | NUR ---
AWAKE, ALERT. BOUTS OF CONFUSION. NO DISTRESS NOTED. DENIES PAIN. ON O2 AT 3L/MIN/OXYMIZER. VOIDS VIA URINAL.
[2018-12-17] MEDS: guaiFENesin ER 600 MG TAB PO SCH (21:05)
--- NOTE | 2018-12-17 22:00 | NUR ---
DOZES ON AND OFF. MOUTH BREATHER, DESATURATES TO LOW 80'S. INSTRUCTED TO DEEP BREATH THROUGH NOSE. ABLE TO SWALLOW PILLS EARLIER WITHOUT INCIDENCE.
--- NOTE | 2018-12-18 | NUR ---
REPORT GIVEN TO CORBIN LOPEZ FOR CONTINUATION OF CARE THROUGH S-BAR METHOD.
--- NOTE | 2018-12-18 00:05 | NUR ---
RECEIVED CARE OF PT FROM CORBIN CORTES.
[2018-12-18] MEDS: IPRATROPIUM BROM 0.5 MG/2.5 ML VIAL.NEB (ATROVENT) INH SCH ×3 (00:40→13:28)
[2018-12-18] MEDS: ALBUTEROL SULFATE 0.083% 2.5 MG/3 ML VIAL.NEB INH SCH ×3 (00:40→13:28)
[2018-12-18 00:42] VITALS: BP_SYST 127
--- NOTE | 2018-12-18 01:30 | NUR ---
RN ROUNDS: PT RESTING IN BED WITH EYES CLOSED. BREATHING IS UNLABORED TO O2 AT 3L/MIN VIA OXYMIZER WITH O2 SATURATION AT 92%. NO S/S OF ACUTE DISTRESS NOTED, PT SEEMS TO BE COMFORTABLE. SAFETY PRECAUTIONS ARE IN PLACE: BED IS LOCKED IN LOWEST POSITION, CALL LIGHT IS WITH PT, SIDE RAILS UP X2, BED ALARM ON, CLOSE TO NURSES STATION. WILL MONITOR.
--- NOTE | 2018-12-18 03:14 | NUR ---
RN ROUNDS: PT AWAKE AND RESTING IN BED WATCHING TELEVISION. PT BROUGHT JELLO AND SUGAR-FREE PUDDING PER REQUEST. PT DENIES FURTHER NEEDS AT THIS TIME. SAFETY PRECAUTIONS MAINTAINED. WILL MONITOR.
--- NOTE | 2018-12-18 05:15 | NUR ---
SLEEPING PT RESTING IN BED WITH EYES CLOSED. VISIBLE SYMMETRICAL RISE AND FALL OF CHEST, BREATHING IS UNLABORED TO OXYMIZER AT 3L. NO S/S OF DISTRESS. SAFETY PRECAUTIONS IN PLACE. WILL MONITOR.
--- NOTE | 2018-12-18 06:13 | NUR ---
CLOSING NOTE PT RESTING IN BED WITH NO SIGN OF DISTRESS. O2 SAT IS AT 95% TO OXYMIZER AT 2L. HR IS 57. ALL NEEDS MET DURING SHIFT. SAFETY MAINTAINED: BED IS LOCKED IN LOWEST POSITION, CALL LIGHT IS WITH PT, SIDE RAILS UP X2, BED ALARM ON, CLOSE TO NURSES STATION. WILL CONTINUE TO MONITOR UNTIL PT CARE IS ENDORSED TO DAY SHIFT RN.
[2018-12-18] MEDS: BUDESONIDE 0.5 MG/2 ML AMPUL.NEB INH SCH (07:32)
--- NOTE | 2018-12-18 07:45 | NUR ---
am notes received pt in bed. a/ox4. denies any pain at this time. c/o of little sob. on oxymizer 2 l saturations 93%. encourged deep breathing. res even and unlabored.needs attended. hob elevated. kept comfortable. fall and safety precautions maintained. poc discussed with pt. verbalized understanding will continue to monitor
[2018-12-18 07:50] VITALS: BP_SYST 131
[2018-12-18] MEDS: guaiFENesin ER 600 MG TAB PO SCH (08:37)
[2018-12-18] MEDS: PREDNISONE 20 MG TABLET PO SCH (08:37)
[2018-12-18] MEDS: CARBIDOPA/LEVODOPA CR 50/200 MG TAB PO SCH (08:37)
[2018-12-18] MEDS: CARBIDOPA/LEVODOPA 25/100 MG TABLET PO SCH ×2 (08:37→13:21)
[2018-12-18] MEDS: FLUTICASONE PROPIONATE 50 mCg/SPRAY 16 GM NS SCH (08:38)
[2018-12-18] MEDS: PRAMIPEXOLE DI-HCL 1 MG TABLET PO SCH ×2 (08:38→13:30)
[2018-12-18] MEDS: DOCUSATE SODIUM 100 MG CAPSULE PO SCH (08:43)
[2018-12-18] MEDS: HEPARIN SODIUM,PORCINE 5000 UNITS/ML VIAL SUBCUT SCH (08:51)
[2018-12-18] MEDS ORDERED: FUROSEMIDE 40 MG/4 ML VIAL IVP SCH (09:00)
--- NOTE | 2018-12-18 10:02 | NUR ---
md visit seen by dr ferguson. pt stable not in acute distress
--- NOTE | 2018-12-18 11:07 | NUR ---
SNF Availability: ([facility], [facility], and [facility] had accepted the patient. Family chose [facility].) [facility] - Room 140B [facility] [place] [address] Medic 1 ambulance will olive picker at [address]pm Dr. Burnett and CORBIN Robison made aware. Family instructed to bring patient's own BIPAP to the SNF with him. (They said they know as they have done it before.) Franny Barron, HCP [place] [phone]
[2018-12-18 11:12] VITALS: BP_SYST 107
[2018-12-18] MEDS: cefTRIAXone 1 GM in D5W 50 ML IV SCH (11:49)
--- NOTE | 2018-12-18 11:56 | NUR ---
ROUNDS PT STABLE SITTING IN CHAIR . WALKED WITH PT. TOLERATED WELL NEEDS ATTENDED. WILL CONITNUE TO MONITOR
[2018-12-18 12:30] VITALS: BP_SYST 101
[2018-12-18] MEDS: AZITHROMYCIN 500 MG in D5W 250 ML IV SCH (13:21)
--- NOTE | 2018-12-18 13:32 | NUR ---
ROUNDS PT STABLE NOTIN ACUTE DISTRESS NEEDS ATTENDED. DENIES SOB AT THIS TIME.
--- NOTE | 2018-12-18 15:30 | NUR ---
PT TRANSFERRED Report given to MAGDALENA WALLACE at [facility]. Transfer packet with Transfer Orders and Medication Reconciliation form given to EMT with report. Exitcare provided. [facility] ID band removed, replaced with ID band with pt's name and . IV catheter removed, intact and dressing applied, no active bleeding. All belongings sent with patient. Patient left floor via gurney escorted by EMT in no distress.
== END 2018-12-18 15:44 | DRG 291 ==
LOC: SED 19:23 → STU 23:38
PROVIDERS: ADMIT Internal Medicine Hospice and Palliative Medicine; ATTEND Internal Medicine Hospice and Palliative Medicine
PROC: 5A09357 Assistance with Respiratory Ventilation, Less than 24 Consecutive Hours, Continuous Positive Airway Pressure (ICD-10-PCS; 2018-12-13)
PROC: 5A09357 Assistance with Respiratory Ventilation, Less than 24 Consecutive Hours, Continuous Positive Airway Pressure (ICD-10-PCS; principal; 2018-12-14)
PROC: 5A09357 Assistance with Respiratory Ventilation, Less than 24 Consecutive Hours, Continuous Positive Airway Pressure (ICD-10-PCS; 2018-12-15)
PROC: 5A09357 Assistance with Respiratory Ventilation, Less than 24 Consecutive Hours, Continuous Positive Airway Pressure (ICD-10-PCS; 2018-12-16)
PROC: 5A09357 Assistance with Respiratory Ventilation, Less than 24 Consecutive Hours, Continuous Positive Airway Pressure (ICD-10-PCS; 2018-12-17)
DX: I13.0 Hypertensive heart and chronic kidney disease with heart failure and stage 1 through stage 4 chronic kidney disease, or unspecified chronic kidney disease (principal); J96.20 Acute and chronic respiratory failure, unspecified whether with hypoxia or hypercapnia; J44.1 Chronic obstructive pulmonary disease with (acute) exacerbation; N17.9 Acute kidney failure, unspecified; E78.5 Hyperlipidemia, unspecified; D64.9 Anemia, unspecified; G20 Parkinson's disease; I50.9 Heart failure, unspecified; M19.90 Unspecified osteoarthritis, unspecified site; N18.9 Chronic kidney disease, unspecified; Z66 Do not resuscitate; Z87.891 Personal history of nicotine dependence; Z99.81 Dependence on supplemental oxygen; Z79.82 Long term (current) use of aspirin; Z98.49 Cataract extraction status, unspecified eye
CPT/HCPCS: 36415; 36600; 71045; 80048; 80053; 82803-TC; 83880; 84484; 85025; 87081; 93005; 93306; 93970; 94640; 94660; 94760; 97110-GP; 97112-GP; 97116-GP; 97530-GP; 99285; G0378; J0456; J0696; J1644; J1940; J2060; J2930; J7050; J7060; J7512; J7613; J7626